=== PATIENT | male | born 2000 | race Caucasian/White ===

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

== ENCOUNTER 2020-07-22 10:32 | Emergency (ER) | payer BC, SELFPAY ==
[~2020-07-22] VITALS: Ht 175.3 cm; Wt 73.2 kg
[~2020-07-22 10:32] MED LIST: ADAP0.05; TOPI25TA10; [UNRECOGNIZED DRUG - CODE]
[2020-07-22 13:09] LABS: BASO # 0.1 10^3/uL (0.0-0.2); BASO % 1.5 % (0.0-1.0); EOS # 0.1 10^3/uL (0.0-0.5); EOS % 1.5 % (0.0-3.0); HEMATOCRIT 50.8 % (42.0-52.0); LYMPH # 2.1 10^3/uL (1.5-5.0); LYMPH % 42.7 % (24.0-44.0); MEAN CORPUSCULAR HEMOGLOBIN 29.6 pg (27.0-33.0); MEAN CORPUSCULAR HGB CONC 33.5 g/dl (32.0-36.5); MEAN CORPUSCULAR VOLUME 88.5 fl (80.0-96.0); MONO # 0.6 10^3/uL (0.0-0.8); MONO % 11.4 % (2.0-8.0); NEUTROPHILS # 2.1 10^3/uL (1.5-8.5); NEUTROPHILS % 42.7 % (36.0-66.0); PLATELET COUNT, AUTOMATED 262 10^3/uL (150-450); RED BLOOD COUNT 5.74 10^6/uL (4.30-6.10); WHITE BLOOD COUNT 4.8 10^3/uL (4.0-10.0)
[2020-07-22 14:08] LABS: TROPONIN I < 0.02 NG/ML (< 0.10)
[2020-07-22 14:39] VITALS: BP 125/78
--- NOTE | 2020-07-22 21:19 | ECGEPIP ---
[facility] - ED Test Date: 2020-07-22 Pat Name: FABY SALGADO Department: Room: - Gender: Male Um Nurse: BEN : 2000 Requested By: WANDA Brown PA-C Order Number: [id number] Reading MD: Santiago Retana Measurements Intervals [place] Rate: 53 P: ID: [id number] QRS: 55 QRSD: 86 T: 40 QT: 388 QTc: 364 Interpretive Statements JUNCTIONAL ESCAPE RHYTHM NO PRIORS FOR COMPARISON Electronically Signed on 07-22-2020 21:18:56 EDT by Santiago Retana
== END 2020-07-22 14:40 | disposition home or self-care (01) ==
LOC: M ED 10:32
DX: R00.2 Palpitations (principal); R00.1 Bradycardia, unspecified

== ENCOUNTER 2022-04-18 06:01 | Emergency (ER) | payer SELFPAY, BC ==
[~2022-04-18] VITALS: Ht 175.3 cm; Wt 73.0 kg
[2022-04-18 06:01] VITALS: BP 147/93
[2022-04-18] MEDS ORDERED: LOSA50TA28 (06:06)
== END 2022-04-18 07:09 | disposition left against medical advice (07) ==
LOC: M ED 06:01
DX: Z53.21 Procedure and treatment not carried out due to patient leaving prior to being seen by health care provider (principal)

== ENCOUNTER → 2023-06-20 | Outpatient (CLI) | payer BC ==
[~2023-06-20] MED LIST changes: +ADAP0.02; -ADAP0.05; +LOSA50TA28
== END ==
LOC: M RAD 08:30
PROVIDERS: ATTEND Family Medicine
DX: I10 Essential (primary) hypertension (principal)

== ENCOUNTER → 2023-06-24 | Outpatient (REF) | payer BC ==
[2023-06-24 13:38] LABS: BASO # 0.1 10^3/uL (0.0-0.2); BASO % 1.1 % (0.0-1.0); EOS # 0.2 10^3/uL (0.0-0.5); EOS % 3.4 % (0.0-3.0); HEMATOCRIT 50.5 % (42.0-52.0); HEMOGLOBIN 16.9 g/dl (13.5-17.5); LYMPH # 2.2 10^3/uL (1.5-5.0); LYMPH % 39.6 % (24.0-44.0); MEAN CORPUSCULAR HEMOGLOBIN 29.2 pg (27.0-33.0); MEAN CORPUSCULAR HGB CONC 33.5 g/dl (32.0-36.5); MEAN CORPUSCULAR VOLUME 87.4 fl (80.0-96.0); MONO # 0.5 10^3/uL (0.0-0.8); MONO % 9.3 % (2.0-8.0); NEUTROPHILS # 2.6 10^3/uL (1.5-8.5); NEUTROPHILS % 46.4 % (36.0-66.0); PLATELET COUNT, AUTOMATED 300 10^3/uL (150-450); RED BLOOD COUNT 5.78 10^6/uL (4.30-6.10); WHITE BLOOD COUNT 5.5 10^3/uL (4.0-10.0)
[2023-06-24 13:44] LABS: ALBUMIN 4.4 G/DL (3.2-5.2); ALKALINE PHOSPHATASE 54 U/L (46-116); ALT/SGPT 32 U/L (7.0-40); AST/SGOT 14 U/L (<34); BILIRUBIN,TOTAL 1.2 MG/DL (0.3-1.2); BLOOD UREA NITROGEN 16 MG/DL (9-23); CALCIUM LEVEL 9.2 MG/DL (8.5-10.1); CARBON DIOXIDE LEVEL 30 MMOL/L (20-31); CHLORIDE LEVEL 104 MMOL/L (98-107); CHOLESTEROL LEVEL 198 MG/DL (<200); CHOLESTEROL RISK RATIO 3.95 (<5); CREATININE FOR GFR 0.93 MG/DL (0.70-1.30); FREE T4 1.11 NG/DL (0.89-1.76); GLOMERULAR FILTRATION RATE > 60.0 (>60); GLUCOSE, FASTING 85 MG/DL (60-100); HDL CHOLESTEROL 50.1 MG/DL (>40); LDL CHOLESTEROL 128.9 MG/DL (<100); NON-HDL-C 147.9 MG/DL; POTASSIUM SERUM 4.1 MMOL/L (3.5-5.1); SODIUM LEVEL 139 MMOL/L (136-145); THYROID STIMULATING HORMONE 4.726 uIU/ML (0.55-4.78); TOTAL PROTEIN 7.1 G/DL (5.7-8.2); TRIGLYCERIDES LEVEL 95 MG/DL (<150)
== END ==
LOC: M LAB REF 12:48
PROVIDERS: ATTEND Family Medicine
DX: I10 Essential (primary) hypertension (principal); Z13.29 Encounter for screening for other suspected endocrine disorder

== ENCOUNTER → 2024-06-11 | Outpatient (CLI) | payer BC ==
[~2024-06-11] MED LIST changes: +ISOVUE-370 76% 100ML VIAL As Ordered ONE; +TOPI-256; -TOPI25TA10
== END ==
LOC: M RAD 13:28
PROVIDERS: ATTEND Family Medicine
DX: R59.0 Localized enlarged lymph nodes (principal)
CPT/HCPCS: 70491; Q9967

== ENCOUNTER → 2024-11-24 | Outpatient (CLI) | payer BC ==
[~2024-11-24] MED LIST changes: -ISOVUE-370 76% 100ML VIAL As Ordered ONE
== END ==
LOC: M RAD 13:33
PROVIDERS: ATTEND Family Medicine
DX: J34.2 Deviated nasal septum (principal)